=== PATIENT | male | born 1995 ===

== ENCOUNTER 2024-06-07 08:00 | Day surgery (SDC) | payer OTHER ==
[2024-06-07] MEDS ORDERED: POVIDONE-IODINE 118 ML BOTT TOP ONE (09:19)
[2024-06-07] MEDS ORDERED: DIBUCAINE 30 GM TUBE ONE (09:25)
[2024-06-07] MEDS ORDERED: CEFTRIAXONE SODIUM 2,000 MG VIAL ONE (09:26)
[2024-06-07] MEDS ORDERED: METRONIDAZOLE/SODIUM CHLORIDE 500 MG/100 ML PIGGYBACK IV ONE (09:26)
[2024-06-07] MEDS ORDERED: LIDOCAINE HCL 1%/EPINEPHRINE 20ML VIAL IJ ONE (09:26)
[2024-06-07] MEDS ORDERED: BUPIVACAINE HCL/Mpf 0.5% 10ML VIAL ONE (09:26)
[2024-06-07] MEDS ORDERED: HEMOSTATIC MATRIX 1 KIT KIT TOP ONE (09:30)
[2024-06-07] MEDS ORDERED: THROMBIN,HU/FIBRINOGEN/CALCIUM 10 ML SYRINGE TOP ONE (10:19)
[2024-06-07] MEDS ORDERED: CHLORHEXIDINE GLUCONATE 120 ML BOTTLE TOP ONE (11:00)
== END 2024-06-07 15:35 | disposition home or self-care (01) ==
LOC: CIR.AMB 08:00
PROVIDERS: ATTEND Colon & Rectal Surgery
DX: L05.91 Pilonidal cyst without abscess (principal); R73.03 Prediabetes